=== PATIENT | male | born 1985 | race Two or more races ===

== ENCOUNTER 2022-12-07 03:03 | Emergency (ER) | payer BC ==
[~2022-12-07] VITALS: Ht 175.3 cm; Wt 98.0 kg
[2022-12-07 03:33] VITALS: BP 111/71
[2022-12-07] MEDS ORDERED: DICL1GEL73 TD (04:58)
[2022-12-07] MEDS ORDERED: IBUP-1456 PO (04:58)
[2022-12-07] MEDS ORDERED: IBUPROFEN 800 MG TAB PO ONE (05:00)
[2022-12-07] MEDS ORDERED: HYDROcodone-ACET 5/325MG TAB PO ONE (05:00)
== END 2022-12-07 05:08 | disposition home or self-care (01) ==
LOC: ER 03:03
DX: S86.811A Strain of other muscle(s) and tendon(s) at lower leg level, right leg, initial encounter (principal); M25.461 Effusion, right knee; Z88.6 Allergy status to analgesic agent; W22.8XXA Striking against or struck by other objects, initial encounter; Y93.72 Activity, wrestling; Y92.89 Other specified places as the place of occurrence of the external cause; Y99.8 Other external cause status
CPT/HCPCS: 29505; 73562